=== PATIENT | male | born 1980 | race Caucasian/White ===

== ENCOUNTER 2018-07-07 14:01 | Emergency (ER) | payer MEDICAID ==
[~2018-07-07] VITALS: Ht 165.1 cm; Wt 59.0 kg
[2018-07-07 14:34] VITALS: BP 113/80
== END 2018-07-07 15:55 | disposition home or self-care (01) ==
LOC: ER 14:01
DX: S51.852A Open bite of left forearm, initial encounter (principal); S51.832A Puncture wound without foreign body of left forearm, initial encounter; W54.0XXA Bitten by dog, initial encounter; Y93.89 Activity, other specified; Y92.89 Other specified places as the place of occurrence of the external cause; Y99.8 Other external cause status

== ENCOUNTER 2020-05-21 10:41 | Emergency (ER) | payer MEDICAID ==
[~2020-05-21] VITALS: Ht 165.1 cm; Wt 59.0 kg
[2020-05-21 10:59] VITALS: BP 127/92
== END 2020-05-21 11:59 | disposition left against medical advice (07) ==
LOC: ER 10:41
DX: Z48.00 Encounter for change or removal of nonsurgical wound dressing (principal); Z53.21 Procedure and treatment not carried out due to patient leaving prior to being seen by health care provider

== ENCOUNTER 2021-06-07 18:30 | Emergency (ER) | payer MEDICAID ==
[~2021-06-07] VITALS: Ht 165.1 cm; Wt 61.2 kg
[2021-06-07 22:40] LABS: Basophils # (auto) 0 10 ^3/uL (0-0.2); Basophils % (auto) 0.3 % (0.0-2.0); Eosinophils # (auto) 0 10 ^3/uL (0-0.8); Eosinophils % (auto) 0.2 % (0.0-7.0); Hematocrit 48.1 % (41.0-53.0); Hemoglobin 16.6 g/dL (13.5-17.5); Lymphocytes # (auto) 1.3 10 ^3/uL (0.4-5.4); Mean Corpuscular Hgb Conc. 34.5 g/dL (32.0-36.0); Mean Corpuscular Volume 89.9 fL (80.0-100.0); Monocytes # (auto) 0.8 10 ^3/uL (0-1.3); Monocytes % (auto) 5.6 % (0.0-12.0); Neutrophils # (auto) 12.1 10 ^3/uL (1.6-8.6); Neutrophils % (auto) 84.9 % (37.0-80.0); Nucleated Red Blood Cells % 0.1 %; Red Blood Cells 5.36 10^6/uL (4.5-5.90); White Blood Cell 14.2 10^3/uL (4.4-10.8)
[2021-06-07 22:56] LABS: INR 1.06 (0.9-1.15); Partial Thromboplastin Time 25.9 sec (23.6-33.0)
[2021-06-07 23:04] LABS: Chloride 108 mmol/L (98-107); Potassium 3.8 mmol/L (3.5-5.1); Sodium 140 mmol/L (136-145)
[2021-06-07 23:16] LABS: Alanine Aminotransferase 52 U/L (16-61); Albumin 4.6 g/dL (3.4-5.0); Alkaline Phosphatase 67 U/L (45-117); Anion Gap 7 (5-15); Aspartate Aminotransferase 20 U/L (15-37); BUN/Creatinine Ratio 15.7; Bilirubin, Total 0.7 mg/dL (0.2-1.0); Blood Urea Nitrogen 13 mg/dL (7-18); Calcium 9.1 mg/dL (8.5-10.1); Carbon Dioxide 25 mmol/L (21-32); GFR African American 133 mL/min; GFR Non-African American 110 mL/min; Glucose 101 mg/dL (74-106); Magnesium 2.5 mg/dL (1.6-2.6); Total Protein 7.7 g/dL (6.4-8.2)
[2021-06-08 02:24] VITALS: BP 123/79
== END 2021-06-08 02:53 | disposition home or self-care (01) ==
LOC: EDBD 18:30 → ER 18:32
DX: R53.1 Weakness (principal); R55 Syncope and collapse; F31.9 Bipolar disorder, unspecified; F17.210 Nicotine dependence, cigarettes, uncomplicated
CPT/HCPCS: 36415; 71045; 80053; 83735; 83880; 84484; 85025; 85379; 85610; 85730; 93005

== ENCOUNTER 2022-06-01 18:19 | Emergency (ER) | payer MEDICAID ==
[~2022-06-01] VITALS: Ht 165.1 cm; Wt 59.1 kg
[2022-06-01 21:17] VITALS: BP 117/75
== END 2022-06-01 22:24 | disposition home or self-care (01) ==
LOC: ER 18:22
DX: S81.811A Laceration without foreign body, right lower leg, initial encounter (principal); F17.210 Nicotine dependence, cigarettes, uncomplicated; F12.10 Cannabis abuse, uncomplicated; W26.8XXA Contact with other sharp object(s), not elsewhere classified, initial encounter; Y93.89 Activity, other specified; Y92.89 Other specified places as the place of occurrence of the external cause; Y99.8 Other external cause status
CPT/HCPCS: 12002

== ENCOUNTER 2022-06-14 14:22 | Emergency (ER) | payer MEDICAID ==
[~2022-06-14] VITALS: Ht 165.1 cm; Wt 66.0 kg
[2022-06-14 14:39] VITALS: BP 122/86
== END 2022-06-14 17:21 | disposition left against medical advice (07) ==
LOC: ER 14:22
DX: S81.811D Laceration without foreign body, right lower leg, subsequent encounter (principal); Z53.21 Procedure and treatment not carried out due to patient leaving prior to being seen by health care provider; X58.XXXD Exposure to other specified factors, subsequent encounter